=== PATIENT | male | born 1950 | race Caucasian/White ===

== ENCOUNTER → 2020-09-12 08:23 | Outpatient (BNVA) | payer MEDICARE, BC, SELFPAY | PROVIDERS: PCP Family Medicine; Visit Provider Family Medicine | DX: E78.5 Hyperlipidemia, unspecified (principal); R35.1 Nocturia; M25.59 Pain in other specified joint | CPT/HCPCS: 80053; 80061; 84153; 85025 ==

== ENCOUNTER 2020-11-20 14:04 | Outpatient (CLI) | payer MEDICARE, BC, SELFPAY ==
--- NOTE | 2020-11-20 14:09 | XR_ITS ---
WS: [id number] KNEE LEFT TECHNIQUE: 3 views of the left knee CLINICAL INFORMATION: medial left knee pain COMPARISON: None. FINDINGS: Moderate degenerative arthritis with narrowing worse medial joint compartment. Small suprapatellar ef fusion. Soft tissue edema. Moderate narrowing of the patellofemoral articulation. Hypertrophic patell a. XR/XR knee LT 3V* [id number] IMPRESSION: Moderate tricompartmental arthritis worse medial joint compartment and patellof emoral articulation. Kellgren-William Classification: grade 3 (moderate): moderate multiple osteoph ytes, definite narrowing of joint space and some sclerosis and possible deformi ty of bone ends
== END 2020-11-20 14:05 | disposition home or self-care (01) ==
PROVIDERS: PCP Family Medicine; Visit Provider Family Medicine
DX: M25.762 Osteophyte, left knee (principal)
CPT/HCPCS: 73562

== ENCOUNTER → 2021-04-29 08:25 | Outpatient (BNVA) | payer MEDICARE, BC, SELFPAY | PROVIDERS: PCP Family Medicine; Visit Provider Family Medicine | DX: K21.9 Gastro-esophageal reflux disease without esophagitis (principal); I10 Essential (primary) hypertension; R53.83 Other fatigue | CPT/HCPCS: 84403; 84443 ==

== ENCOUNTER → 2021-07-31 08:34 | Outpatient (BNVA) | payer MEDICARE, BC, SELFPAY | PROVIDERS: PCP Family Medicine; Visit Provider Family Medicine | DX: R79.89 Other specified abnormal findings of blood chemistry (principal); M54.2 Cervicalgia; G89.29 Other chronic pain | CPT/HCPCS: 84403; 85025 ==

== ENCOUNTER 2021-08-01 09:53 | Outpatient (CLI) | payer MEDICARE, BC, SELFPAY ==
--- NOTE | 2021-08-01 10:03 | XR_ITS ---
WS: [id number] Exam: XR sacroiliac jts m 3V [id number] Date/Time of Exam: 08/01/2021 10:03 AM Reason For Exam: left si joint pain The left SI joint is partially fused. The right SI joint is open. Moderate degenerative change of bot h SI joints. Bony changes in the pelvis to suggest diffuse idiopathic skeletal hyperostosis. No fract ure. No bone destruction identified. Pseudoarthrosis involving the left transverse process of L5 and the left sacrum. XR/XR sacroiliac jts m 3V [id number] IMPRESSION: 1. Partially fused left SI joint. 2. Bilateral SI joint DJD. Probable idiopathic skeletal hyperostosis. 3. Partially visualized left total hip replacement.
--- NOTE | 2021-08-01 10:03 | XR_ITS ---
WS: [id number] Exam: XR cervical spine 3V* [id number] Date/Time of Exam: 08/01/2021 10:03 AM Reason For Exam: chronic right neck pain No fracture or dislocation. Mild degenerative disc changes from C5 to C7 with spondylosis. Facet DJD at all levels. Normal paraspinal soft tissue structures. The odontoid is intact. XR/XR cervical spine 3V* [id number] IMPRESSION: 1. Degenerative changes. 2. No fracture or malalignment.
== END 2021-08-01 09:54 | disposition home or self-care (01) ==
LOC: RAD 09:56
PROVIDERS: PCP Family Medicine; Visit Provider Family Medicine
DX: G89.29 Other chronic pain (principal); M54.2 Cervicalgia; M53.3 Sacrococcygeal disorders, not elsewhere classified
CPT/HCPCS: 72040; 72202

== ENCOUNTER 2021-08-18 06:00 | Outpatient (RCR) | payer MEDICARE, BC, SELFPAY | END 2021-08-21 23:59 | disposition home or self-care (01) | LOC: SPT 06:00 | PROVIDERS: PCP Family Medicine; Referring Provider Family Medicine; Visit Provider Family Medicine | DX: M54.2 Cervicalgia (principal); G89.29 Other chronic pain | CPT/HCPCS: 97110; 97162 ==

== ENCOUNTER 2021-08-22 06:00 | Outpatient (RCR) | payer MEDICARE, BC, SELFPAY | END 2021-09-21 23:59 | disposition home or self-care (01) | LOC: SPT 06:00 | PROVIDERS: PCP Family Medicine; Referring Provider Family Medicine; Visit Provider Family Medicine | DX: M54.2 Cervicalgia (principal); G89.29 Other chronic pain | CPT/HCPCS: 97110 ==

== ENCOUNTER → 2021-09-11 09:18 | Outpatient (BNVA) | payer MEDICARE, BC, SELFPAY | PROVIDERS: PCP Family Medicine; Visit Provider Family Medicine | DX: E78.5 Hyperlipidemia, unspecified (principal); R35.1 Nocturia; N52.9 Male erectile dysfunction, unspecified; I10 Essential (primary) hypertension; N52.1 Erectile dysfunction due to diseases classified elsewhere | CPT/HCPCS: 80053; 80061; 84153 ==

== ENCOUNTER → 2021-12-08 14:43 | Outpatient (BNVA) | payer MEDICARE, BC, SELFPAY | PROVIDERS: PCP Family Medicine; Visit Provider Nurse Practitioner Family | DX: M25.562 Pain in left knee (principal); I10 Essential (primary) hypertension | CPT/HCPCS: 20610; 99213; J0702; J3490 ==

== ENCOUNTER → 2021-12-15 14:01 | Outpatient (BNVA) | payer MEDICARE, BC, SELFPAY | PROVIDERS: PCP Family Medicine; Visit Provider Nurse Practitioner Family | DX: M25.562 Pain in left knee (principal); M53.3 Sacrococcygeal disorders, not elsewhere classified; G89.29 Other chronic pain; Z96.642 Presence of left artificial hip joint | CPT/HCPCS: 73502; 99214 ==

== ENCOUNTER 2021-12-25 13:02 | Emergency (ER) | payer MEDICARE, BC, SELFPAY ==
[2021-12-25 13:10] VITALS: BP 132/90; PULSE 82; RESP 24; TEMP 37; O2SAT 94
--- NOTE | 2021-12-25 13:11 | ED_ITS ---
HPI - Back Pain/Injury General: Chief Complaint: Back Pain/Injury Stated Complaint: back pain Time Seen by Provider: 12/25/21 13:11 History of Present Illness: Mr. Orozco is a 71-year-old gentleman with remote history of traumatic back injury presenting to the emergency department d ue to severe back pain. Onset of symptoms was approximately 3 days ago without known specific provoking factor. Endorses worsening pain and spasming. Has progressed to the point of being unable to get out of bed. Typically back pain is well controlled and does not require daily medication. Density symptoms is severe. Worse with movement. No other specific changes in health, exacerbating, or alleviating factors identified. Onset (ago): day(s) Timing: constant Severity: severe Location: lumbar spine Exacerbating factors: movement and walking Context: unknown Review of Systems General: Reports: 10 or more systems reviewed and unremarkable except in HPI and below PFSH ED PFSH: Medical History Carpal tunnel syndrome of right wrist Dyslipidemia Surgical History History of hip replacement Left History of shoulder replacement Right Family History Mother Cancer Father Diabetes Dementia Stroke Brother Diabetes Social History Smoking and tobacco status: never smoked Second hand smoke exposure: No Alcohol intake: current Alcohol intake frequency: holidays/special occasions only Desire information about alcohol rehabilitation?: No Desire information about substance/drug rehabilitation?: No Physical Exam Const: COMMON NORMALS: alert GENERAL APPEARANCE: cooperative, well developed and in distress (Due to pain) HENMT: COMMON NORMALS: normocephalic and atraumatic HEAD & SCALP: normocephalic and atraumatic Eye: COMMON NORMALS: conjunctivae normal CONJUNCTIVA: Yes conjunctivae nor mal SCLERA: sclerae normal Neck/C-Spine: COMMON NORMALS: supple GENERAL: Yes trachea midline Resp: COMMON NORMALS: clear to auscultation bilaterally EFFORT & INSPECTION: Yes able to speak in complete sentences AUSCULTATION: clear to auscultation bilaterally Cardio: COMMON NORMALS: regular rhythm RATE: tachycardic RHYTHM: regular rhythm GI: COMMON NORMALS: Soft to palpation PALPATION: Yes Soft to palpation and No Tenderness to palpation present (GI) PERCUSSION: normal to percussion Extremity: GENERAL: Yes normal exam except as noted and No edema Neuro: COMMON NORMALS: moves all extremities SENSORIUM/ORIENTATION: Yes alert and No Orientation impaired Psych: COMMON NORMALS: mental status grossly normal and Normal thought process present THOUGHT PROCESS: Normal thought process present Course Vital Signs: Vital signs: Vital Signs Temperature 98.6 F 12/25/21 15:35 Pulse Rate 79 12/25/21 16:52 Respiratory Rate 18 12/25/21 16:52 Blood Pressure 118/68 12/25/21 16:52 Pulse Oximetry 97 12/25/21 16:52 Oxygen Delivery Me thod 12/25/21 15:35 MDM - Back Pain/Injury Medical Decision Making 71-year-old gentleman presenting with atraumatic back pain. Does have a history of back injury though typically well controlled. No red flag symptoms reported. Patient is nontoxic though visibly uncomfortable due to pain. Symptom treatment ordered. No leukocytosis on laboratory studies, hemoconcentration again noted. No significant metabolic abnormalities. No evidence of UTI. CT imaging with no acute intra-abdominal pathology to explain symptoms. Degenerative changes discussed with patient and incidental findings were discussed. Upon reassessment patient feels significantly improved. Most likely etiology of patient symptoms is exacerbation of degenerative disc disease/back pain. Plan to have outpatient follow-up with spine surgery. The results of ED evaluation were discussed with the patient including prescriptions and/or symptomatic cares (if applicable) including appropriate and responsible use, followup plan, and return precautions. The patient verbalized understanding and felt safe for discharge. Medical Records I reviewed the patient's medical records. Labs I reviewed the patient's lab results. : 12/25/21 13:50 12/25/21 13:50 Radiology Impressions Abdomen/Pelvis CT 12/25/21 13:48 IMPRESSION: 1. Left hip arthroplasty, with anatomic alignment and no acute complication. 2. Findings in the lumbar spine described in separate report. 3. Old healed pubic ramus fractures. 4. Postsurgical changes at the level of the left hemidiaphragm. 5. Hepatic steatosis. 6. Diverticulosis coli. 7. Prostatomegaly. COMMENTS: Consistent with the [employer]'s Incidental Findings Committee white paper (J Am Beto Radiol 2018): Any incidental renal lesion less than 1 cm or classified as too small to characterize, or any incidental cystic renal lesion characterized as simple-appearing, is likely benign. No follow-up imaging is recommended for these lesions per consensus recommendations based on imaging criteria. Lumbar Spine CT 12/25/21 13:48 IMPRESSION: 1. No acute lumbar spinal injury demonstrated by CT. 2. Degenerative changes of the cervical spine, as above. Laboratory Results WBC 8.0 10^3/uL (4.0-10.0) 12/25/21 13:50 RBC 6.20 10^6/uL (4.1-5.3) H 12/25/21 13:50 Hgb 18.3 g/dL (11.7-16.6) H 12/25/21 13:50 Hct 55.0 % (42.0-52.0) H 12/25/21 13:50 MCV 88.7 fl (80-94) 12/25/21 13:50 MCH 29.5 pg (28.0-34.0) 12/25/21 13:50 MCHC 33.3 g/dL (30.0-36.0) 12/25/21 13:50 RDW 14.4 % (12.1-15.1) 12/25/21 13:50 Plt Count 192 10^3/cmm (130-400) 12/25/21 13:50 MPV 9.9 fL (7.4-10.4) 12/25/21 13:50 Neut % (Auto) 61.3 % 12/25/21 13:50 Lymph % (Auto) 24.9 % 12/25/21 13:50 [place] % (Auto) 9.3 % 12/25/21 13:50 Eos % (Auto) 3.1 % 12/25/21 13:50 Baso % (Auto) 0.8 % 12/25/21 13:50 Neut # (Auto) 4.90 10^3/uL (1.8-7.7) 12/25/21 13:50 Lymph # (Auto) 2.0 10^3/uL (0.8-4.8) 12/25/21 13:50 [place] # (Auto) 0.7 10^3/uL (0.2-0.9) 12/25/21 13:50 Eos # (Auto) 0.3 10^3/uL (0.0-0.8) 12/25/21 13:50 Baso # (Auto) 0.1 10^3/uL (0.0-0.1) 12/25/21 13:50 Nucleated RBC % (auto) 0 % 12/25/21 13:50 Nucleated RBCs # 0.0 /100WBC 12/25/21 13:50 Sodium 142 mmol/L (136-145) 12/25/21 13:50 Potassium 4.0 mmol/L (3.5-5.1) 12/25/21 13:50 Chloride 106 mmol/L (98-107) 12/25/21 13:50 Carbon Dioxide 24 mmol/L (22-29) 12/25/21 13:50 Anion Gap 16.0 (5-19) 12/25/21 13:50 BUN 19 mg/dL (8-23) 12/25/21 13:50 Creatinine 1.0 mg/dL (0.7-1.2) 12/25/21 13:50 GFR Calculation Not Reportable 12/25/21 13:50 Glucose 82 mg/dL (65-115) 12/25/21 13:50 Calculated Osmolality 295 mOsm/kg (285-295) 12/25/21 13:50 Calcium 8.7 mg/dL (8.5-10.5) 12/25/21 13:50 Total Bilirubin 0.5 mg/dL (0.15-1.2) 12/25/21 13:50 AST 28 U/L (0-40) 12/25/21 13:50 ALT 30 U/L (0-41) 12/25/21 13:50 Alkaline Phosphatase 87 U/L (40-130) 12/25/21 13:50 Total Protein 6.3 g/dL (6.6-8.7) L 12/25/21 13:50 Albumin 3.8 g/dL (3.5-5.2) 12/25/21 13:50 Globulin 2.5 g/dL (1.3-4.6) 12/25/21 13:50 Lipase 50 U/L (13-60) 12/25/21 13:50 Urine Color Yellow (Yellow) 12/25/21 15:30 Urine Appearance Clear (CLEAR) 12/25/21 15:30 Urine pH 5 (5-7) 12/25/21 15:30 Ur Specific [place] 1.030 (1.005-1.030) 12/25/21 15:30 Urine Protein Neg (Negative) 12/25/21 15:30 Urine Glucose (UA) Norm (Normal) 12/25/21 15:30 Urine Ketones Negative (Negative) 12/25/21 15:30 Urine Blood Neg (Negative) 12/25/21 15:30 Urine Nitrate Negative (Negative) 12/25/21 15:30 Urine Bilirubin 1+ (Negative) H 12/25/21 15:30 Urine Urobilinogen Norm mg/dL (Negative) 12/25/21 15:30 Ur Leukocyte Esterase Negative (Negative) 12/25/21 15:30 Discharge Plan Discharge Patient Disposition: Home Clinical Impression: Back pain Condition: Stable Prescriptions: New oxycodone 5 mg tablet 5 mg PO Q4H PRN (Reason: pain) Qty: 10 0RF Valium 2 mg tablet 2 mg PO TID PRN (Reason: muscle spasm) Qty: 20 0RF No Action meloxicam 15 mg tablet 15 mg PO DAILY Qty: 90 3RF sildenafil (pulm.hypertension) 20 mg tablet See Rx Instructions PO DAILY Qty: 30 2RF Rx Instructions: PO daily; Take 1-5 pills one hour before sexual activity. Take on an empty stomach amlodipine [Norvasc] 2.5 mg tablet 2.5 mg PO DAILY Qty: 90 1RF omeprazole 20 mg capsule,delayed release(DR/EC) 20 mg PO DAILY Qty: 90 1RF tizanidine 4 mg tablet 4 mg PO Q8H PRN (Reason: muscle spasticity) Qty: 90 0RF (DME) crutches See Rx Instructions .Route .MEDSUPPLY Qty: 1 0RF Rx Instructions: As directed atorvastatin 40 mg tablet 40 mg PO DAILY 90 Days Qty: 90 1RF testosterone cypionate 200 mg/mL oil 200 mg SUBCUT .every 14 days Qty: 1 2RF Rx Instructions: Please dispense syringes as well. Discharge Orders: Discharge ED (Routine); Ordered 12/25/21 Ordered By: Sachin Godfrey Referrals: Karen Simmons DO [Primary Care Provider] - Discharge Diet: Usual diet Discharge Activity: Increase activity as tolerated Patient Instructions: Diazepam (By mouth), Back Pain (ED), Opioid Safety, Pain Management Activity Restrictions/Additional Instructions: Thank you for visiting the emergency department. You were seen evaluated for back pain. The exact cause of your back pain is unclear though we are pleased that you had improvement in the emergency department. As discussed I will prescribe oxycodone and also Valium for pain. Please use these extremely cautiously and do not take them at the same time. You may also use [id number] medications however please do not exceed the daily recommended dosage and please keep in mind that many namebrand medications contain the same active gradients. Please follow-up with your primary care provider and pain management. Return to the emergency department for uncontrolled symptoms or anything else that you are concerned about a feel needs emergency department evaluation. Coding Level of Care Code ED Business Continuity Analyst for [facility] Exam Comprehensive
[2021-12-25 13:30] VITALS: RESP 22
[2021-12-25] MEDS: HYDROmorphone 1 mg/mL INJ 1 mL 0.5 MG IVP ×2 (13:30→14:09)
[2021-12-25] MEDS: diazePAM 2 mg Tablet PO (13:31)
--- NOTE | 2021-12-25 13:48 | CTR_ITS ---
PROCEDURE INFORMATION: Exam: CT Abdomen And Pelvis With Contrast Exam date and time: 12/25/2021 3:15 PM Age: 71 years old Clinical indication: Abdominal pain; Prior surgery; Surgery type: Diaphrahm repair, hip, femur, splenectomy; Additional info: Back and hip pain TECHNIQUE: Imaging protocol: Computed tomography of the abdomen and pelvis with contrast. Radiation optimization: All CT scans at this facility use at least one of these dose optimization techniques: automated exposure control; mA and/or kV adjustment per patient size (includes targeted exams where dose is matched to clinical indication); or iterative reconstruction. Contrast material: OMNI 350; Contrast volume: 100 ml; Contrast route: INTRAVENOUS (IV); COMPARISON: CR XR hip LT 2-3V wo/w pel* [id number] 12/15/2021 2:08 PM RADIATION DOSE METRICS: Total DLP (mGy-cm): 922.4 FINDINGS: Liver: There is a diffuse decrease in hepatic parenchymal density, consistent with fatty infiltration. There is a 10 mm hypodensity in the right hepatic lobe which is nonspecific but likely reflects parenchymal cyst or hemangioma. A smaller 3 mm hypodensity in the lateral aspect of the right hepatic lobe is nonspecific but too small to characterize. Gallbladder and bile ducts: The gallbladder is normal. Pancreas: The pancreas is normal. Spleen: The spleen is normal. Adrenal glands: The adrenal glands are normal. Kidneys and ureters: There is no evidence of hydronephrosis. Simple appearing small right renal cortical cysts measuring up to 6 mm. No nephrolithiasis. Stomach and bowel: The stomach is normal. Diverticulosis coli is noted, with no inflammatory changes to indicate diverticulitis. Appendix: A normal appendix is identified. Intraperitoneal space: There is no free intraperitoneal air visualized. There is no evidence of free intraperitoneal or pelvic fluid. No free air. No free fluid. Vasculature: Unremarkable. No abdominal aortic aneurysm. Lymph nodes: No abnormally enlarged lymph nodes identified. Urinary bladder: The bladder is normal. Reproductive: Prostatomegaly is noted. The prostate gland measures 6.3 cm in diameter. Bones/joints: The lumbar spine is described in separate report. Previous left hip arthroplasty, with anatomic alignment and no acute complication evident. The distal tip of the femoral component is not included in the field of view but is visualized on the 12/15/2021 plain radiographs. Heterotopic ossification is seen at the lateral aspect of the leonel bilaterally. Old healed pubic ramus fractures. Soft tissues: Unremarkable. Other findings: Postsurgical changes at the level of the left hemidiaphragm. CT/CT abdomen pelvis w con* [id number] IMPRESSION: 1. Left hip arthroplasty, with anatomic alignment and no acute complication. 2. Findings in the lumbar spine described in separate report. 3. Old healed pubic ramus fractures. 4. Postsurgical changes at the level of the left hemidiaphragm. 5. Hepatic steatosis. 6. Diverticulosis coli. 7. Prostatomegaly. COMMENTS: Consistent with the [employer]'s Incidental Findings Committee white paper (J Am Beto Radiol 2018): Any incidental renal lesion less than 1 cm or classified as too small to characterize, or any incidental cystic renal lesion characterized as simple-appearing, is likely benign. No follow-up imaging is recommended for these lesions per consensus recommendations based on imaging criteria.
--- NOTE | 2021-12-25 13:48 | CTR_ITS ---
PROCEDURE INFORMATION: Exam: CT Lumbar Spine Without Contrast Exam date and time: 12/25/2021 3:15 PM Age: 71 years old Clinical indication: Low back pain; Prior surgery; Surgery type: Hip; Additional info: Severe back pain TECHNIQUE: Imaging protocol: Computed tomography of the lumbar spine without contrast. Radiation optimization: All CT scans at this facility use at least one of these dose optimization techniques: automated exposure control; mA and/or kV adjustment per patient size (includes targeted exams where dose is matched to clinical indication); or iterative reconstruction. COMPARISON: CR XR hip LT 2-3V wo/w pel* [id number] 12/15/2021 2:08 PM RADIATION DOSE METRICS: Total DLP (mGy-cm): 751.5 FINDINGS: Bones/joints: There is slight right convexity of the upper lumbar spine. No anterior wedging deformity. No acute lucent fracture lines visualized. No pars interarticularis defect is seen. Lumbar facet arthropathy is noted. There is a degenerative left lateral pseudoarthrosis at the L5-S1 level. Spondylitic changes are most prominent at the L2-L3 and L4-L5 levels. Central canal stenosis is moderate at L2-L3, eccentric to the left and at L4-L5. Neural foraminal stenosis is seen on the left at L2-L3, eccentric to the left at L3-L4 and L4-L5. Soft tissues: Unremarkable. CT/CT lumbar spine wo con* [id number] IMPRESSION: 1. No acute lumbar spinal injury demonstrated by CT. 2. Degenerative changes of the cervical spine, as above.
[2021-12-25 13:57] LABS: Basophils # 0.1 10^3/uL (0.0-0.1); Basophils % 0.8 %; Eosinophils # 0.3 10^3/uL (0.0-0.8); Eosinophils % 3.1 %; Hemoglobin 18.3 g/dL (11.7-16.6); Lymphocytes % 24.9 %; Mean Corpuscular HGB Conc 33.3 g/dL (30.0-36.0); Mean Corpuscular Hemoglobin 29.5 pg (28.0-34.0); Mean Corpuscular Volume 88.7 fl (80-94); Mean Platelet Volume 9.9 fL (7.4-10.4); Monocytes # 0.7 10^3/uL (0.2-0.9); Monocytes % 9.3 %; Neutrophils % 61.3 %; Nucleated Red Blood Cells % 0 %; Platelet Count 192 10^3/cmm (130-400); Red Cell Distribution Width 14.4 % (12.1-15.1)
[2021-12-25 14:09] VITALS: RESP 17
[2021-12-25] MEDS: sodium chloride 0.9% 1,000 ML 999 ML IV (14:11)
[2021-12-25 14:24] LABS: Alanine Aminotransferase 30 U/L (0-41); Albumin Level 3.8 g/dL (3.5-5.2); Alkaline Phosphatase 87 U/L (40-130); Aspartate Amino Transferase 28 U/L (0-40); Blood Urea Nitrogen 19 mg/dL (8-23); Calcium 8.7 mg/dL (8.5-10.5); Carbon Dioxide 24 mmol/L (22-29); Chloride 106 mmol/L (98-107); Globulin 2.5 g/dL (1.3-4.6); Glucose 82 mg/dL (65-115); Lipase 50 U/L (13-60); Osmolality Calculated 295 mOsm/kg (285-295); Sodium 142 mmol/L (136-145); Total Bilirubin 0.5 mg/dL (0.15-1.2); Total Protein 6.3 g/dL (6.6-8.7)
[2021-12-25] MEDS: iohexol 350 mg/mL 500 mL Btl (per mL) IV (15:20)
[2021-12-25 15:35] VITALS: BP 132/90; PULSE 78; RESP 17; TEMP 37; O2SAT 94
[2021-12-25 15:44] LABS: Add Urine Microscopic? NO; Charge for UA Resulting for Rev
[2021-12-25 16:08] LABS: Urine Appearance Clear (CLEAR); Urine Color Yellow (Yellow); pH Urine 5 (5-7)
[2021-12-25 16:09] LABS: Bilirubin Urine 1+ (Negative); Blood Urine Neg (Negative); Glucose Urine UA Norm (Normal); Ketones Urine Negative (Negative); Leukocyte Esterase Urine Negative (Negative); Nitrate Urine Negative (Negative); Protein Urine Neg (Negative); Urobilinogen Urine Norm (Negative)
[2021-12-25 16:52] VITALS: BP 118/68; PULSE 79; RESP 18; O2SAT 97
--- NOTE | 2021-12-26 08:44 | DCPLANNER ---
Addendum entered by Jaimie Campbell 02/11/22 15:22: Patient had a follow up appointment scheduled with ortho - patient did attend appointment Addendum entered by Jaimie Campbell 01/01/22 17:12: Patient has a follow up appointment scheduled for Thursday, January 20, 2022 at 9:[address] Munguia at ortho. Clinic will call patient with appointment information. Original Note: broiler manager had message to schedule a follow up appointment for patient with ortho. broiler manager sent patients information to the front office staff at ortho. Patients information will be printed and reviewed. Clinic will call patient with appointment information.
== END 2021-12-25 16:54 | disposition home or self-care (01) ==
PROVIDERS: Emergency Provider Emergency Medicine; PCP Family Medicine
DX: M54.9 Dorsalgia, unspecified (principal); E78.5 Hyperlipidemia, unspecified
CPT/HCPCS: 72131; 74177; 80053; 81003; 83690; 85025; 96361; 96374; 96376; 99285; J1170; J7030; Q9967

== ENCOUNTER → 2022-01-20 09:03 | Outpatient (BNVA) | payer MEDICARE, BC, SELFPAY | PROVIDERS: PCP Family Medicine; Referring Provider Emergency Medicine; Visit Provider Orthopaedic Surgery | DX: M48.062 Spinal stenosis, lumbar region with neurogenic claudication (principal); M47.816 Spondylosis without myelopathy or radiculopathy, lumbar region | CPT/HCPCS: 72110; 99204 ==

== ENCOUNTER 2022-02-11 08:16 | Outpatient (CLI) | payer MEDICARE, BC, SELFPAY ==
--- NOTE | 2022-02-11 08:45 | MR_ITS ---
WS: [id number] MRI LUMBAR SPINE NONCONTRAST TECHNIQUE: Sagittal T1, T2 and STIR imaging. Axial T1 and T2 imaging. CLINICAL INFORMATION: low back back COMPARISON: CT December 25, 2021 FINDINGS: Mild lumbar curve. No acute compression. No high-grade central canal stenosis. Disc desiccation worse at L2-L3 and L4-L5. L1-L2: Mild facet arthropathy. Spinal canal and foramen are patent. L2-L3: Disc bulging eccentric to the LEFT. Mild central canal stenosis. Impingement traversing LEFT L 3 nerve root. Mild facet arthropathy. LEFT foraminal protrusion with mild LEFT foraminal narrowing. L3-L4: Mild annular bulging with slight effacement of the ventral thecal sac. Narrowing of the LEFT g reater than RIGHT subarticular recess. LEFT eccentric disc bulge with mild LEFT foraminal narrowing. RIGHT foramen is patent. Mild facet arthropathy. L4-L5: Mild annular bulging with impingement traversing L5 nerve roots bilaterally. Mild facet arthro petra. Moderate RIGHT and mild LEFT foraminal narrowing. Mild central canal stenosis. L5-S1: Mild annular bulging. Osteophytic ridging. Spinal canal and foramen are patent. Mild facet art hropathy. Disc protrusion in the lower thoracic spine seen on the system dispatcher imaging with indentation on the thoraci c cord and mild to moderate central canal stenosis. T7-T8. Visualized pelvic bony structures: Normal. Paravertebral soft tissues: Normal. MR/MR lumbar spine wo con* [id number] IMPRESSION: 1. Mild lumbar curve. No acute compression. 2. Mild central canal stenosis L2-L3 with impingement on the LEFT subarticular recess and traversing LEFT L3 nerve root. Mild LEFT L2-L3 foraminal narrowing. 3. Mild annular bulging L3-L4 with impingement on the bilateral subarticular r ecess LEFT greater than RIGHT. Mild central canal stenosis. Mild LEFT foraminal narrowing at this level with a tiny LEFT foraminal protrusion. 4. Mild central canal stenosis L4-L5 with impingement traversing L5 nerve root s bilaterally. RIGHT foraminal protrusion with moderate RIGHT foraminal narrowi ng impinges the exiting RIGHT L4 nerve root. 5. Thoracic spine disc protrusion T7-T8 with mild to moderate central canal st enosis and indentation on the thoracic cord. This can be further evaluated with thoracic spine MRI.
== END 2022-02-11 08:17 | disposition home or self-care (01) ==
LOC: RAD 08:17
PROVIDERS: PCP Family Medicine; Visit Provider Orthopaedic Surgery
DX: M53.3 Sacrococcygeal disorders, not elsewhere classified (principal); G89.29 Other chronic pain; M54.9 Dorsalgia, unspecified
CPT/HCPCS: 72148

== ENCOUNTER → 2022-02-17 08:20 | Outpatient (BNVA) | payer MEDICARE, BC, SELFPAY | PROVIDERS: PCP Family Medicine; Visit Provider Orthopaedic Surgery | DX: M48.062 Spinal stenosis, lumbar region with neurogenic claudication (principal); M51.26 Other intervertebral disc displacement, lumbar region | CPT/HCPCS: 99214 ==

== ENCOUNTER → 2022-04-06 09:33 | Outpatient (BNVA) | payer MEDICARE, BC, SELFPAY | PROVIDERS: PCP Family Medicine; Visit Provider Family Medicine | DX: R79.89 Other specified abnormal findings of blood chemistry (principal) | CPT/HCPCS: 84403; 85025 ==

== ENCOUNTER → 2022-04-07 08:10 | Outpatient (BNVA) | payer MEDICARE, BC, SELFPAY | PROVIDERS: PCP Family Medicine; Referring Provider Family Medicine; Visit Provider Orthopaedic Surgery | DX: M72.0 Palmar fascial fibromatosis [Dupuytren] (principal) | CPT/HCPCS: 99203 ==

== ENCOUNTER → 2022-04-21 11:45 | Outpatient (BNVA) | payer MEDICARE, BC, SELFPAY | PROVIDERS: PCP Family Medicine; Visit Provider Family Medicine | DX: L81.9 Disorder of pigmentation, unspecified (principal) | CPT/HCPCS: 88304 ==

== ENCOUNTER 2022-05-13 14:14 | Outpatient (CLI) | payer MEDICARE, BC, SELFPAY ==
--- NOTE | 2022-05-13 14:30 | MR_ITS ---
WS: [id number] MRI THORACIC SPINE WITHOUT CONTRAST TECHNIQUE: Sagittal T1, T2 and STIR imaging. Axial T2 imaging. Noncontrast imaging obtained. CLINICAL INFORMATION: R93.7 - Abnormal findings on diagnostic imaging of other ... COMPARISON: Lumbar spine MRI February 11, 2022 FINDINGS: Mild thoracic curve. No acute compression. Prominent RIGHT pericentral protrusion mid thoracic spine at T7/T8 RIGHT pericentral protrusion at this level results in indentation RIGHT ventral thoracic cord with mi ld central canal stenosis. Cord signal remains normal. Small shallow central protrusions at T4-T5 T5-T6, T6-T7 without significant central canal stenosis at these levels. Moderate facet arthropathy lower thoracic spine. No acute compression fractures. Minim al chronic anterior wedging in the mid thoracic spine. Adrenal glands are normal. Normal caliber thor acic aorta. Normal paravertebral soft tissues. MR/MR thoracic spin wo con* [id number] IMPRESSION: 1. Prominent RIGHT pericentral protrusion T7-T8 with indentation RIGHT ventral thoracic cord with mild central canal stenosis. Cord signal remains normal. 2. Moderate facet arthropathy in the lower thoracic spine. 3. No acute compression fractures. 4. Additional tiny protrusions in the upper thoracic spine described above wit hout significant central canal stenosis.
== END 2022-05-13 14:15 | disposition home or self-care (01) ==
LOC: RAD 14:19
PROVIDERS: PCP Family Medicine; Visit Provider Orthopaedic Surgery
DX: R93.7 Abnormal findings on diagnostic imaging of other parts of musculoskeletal system (principal); M51.24 Other intervertebral disc displacement, thoracic region; M47.814 Spondylosis without myelopathy or radiculopathy, thoracic region
CPT/HCPCS: 72146

== ENCOUNTER → 2022-05-19 14:28 | Outpatient (BNVA) | payer MEDICARE, BC, SELFPAY | PROVIDERS: PCP Family Medicine; Visit Provider Orthopaedic Surgery | DX: M48.062 Spinal stenosis, lumbar region with neurogenic claudication (principal); M51.24 Other intervertebral disc displacement, thoracic region | CPT/HCPCS: 99214 ==

== ENCOUNTER 2022-08-06 20:00 | Outpatient (CLI) | payer OTHER, SELFPAY | END 2022-08-06 20:01 | disposition home or self-care (01) | LOC: SLEEP 08-07 06:19 | PROVIDERS: PCP Family Medicine; Visit Provider Family Medicine | DX: G47.33 Obstructive sleep apnea (adult) (pediatric) (principal) | CPT/HCPCS: 95811 ==

== ENCOUNTER → 2022-09-16 09:44 | Outpatient (BNVA) | payer MEDICARE, BC, SELFPAY | PROVIDERS: PCP Family Medicine; Visit Provider Family Medicine | DX: R79.89 Other specified abnormal findings of blood chemistry (principal) | CPT/HCPCS: 84403 ==

== ENCOUNTER 2022-10-14 09:38 | Outpatient (CLI) | payer MEDICARE, BC, SELFPAY ==
--- NOTE | 2022-10-14 09:52 | XR_ITS ---
WS: [id number] EXAMINATION: XR hand RT min 3V* [id number] REASON FOR EXAM: index finger pain and swelling COMPARISON: None available. ORDER DATE: 10/14/2022 9:57 AM FINDINGS: There is generalized intra phalangeal joint space narrowing. This indicates degenerative joint and-or chondral changes. Juxta articular marginal osteophytes are present. There are no acute fractures or dislocations. IMPRESSION: DIFFUSE OSTEOARTHRITIS.
== END 2022-10-14 09:39 | disposition home or self-care (01) ==
PROVIDERS: PCP Family Medicine; Visit Provider Family Medicine
DX: M79.89 Other specified soft tissue disorders (principal); M19.041 Primary osteoarthritis, right hand
CPT/HCPCS: 73130

== ENCOUNTER 2022-10-27 20:57 | Emergency (ER) | payer MEDICARE, BC, SELFPAY ==
[2022-10-27 21:00] VITALS: BP 142/99; PULSE 77; RESP 18; TEMP 36.7; O2SAT 94; BMI 27.3
--- NOTE | 2022-10-27 21:02 | ED_ITS ---
HPI - Back Pain/Injury General: Chief Complaint: Back Pain/Injury Stated Complaint: low back pain Time Seen by Provider: 10/27/22 20:58 History of Present Illness: Patient presents to the ER by EMS with low back pain after fall off a rolling chair and landing on the concrete. EMS gave the patient a total of 200 mg of fentanyl and 4 of Zofran patient is writhing in pain spastic nature to his low back. Patient denies any pain anywhere else other than his low back. Patient has no known allergies. Review of Systems General: Reports: 10 or more systems reviewed and unremarkable except in HPI and below PFSH ED PFSH: Medical History Carpal tunnel syndrome of right wrist Dyslipidemia Surgical History History of hip replacement Left History of shoulder replacement Right Family History Mother Cancer Father Diabetes Dementia Stroke Brother Diabetes Social History Smoking and tobacco status: never smoked Second hand smoke exposure: No Alcohol intake: current Alcohol intake frequency: holidays/special occasions only Desire information about alcohol rehabilitation?: No Substance/Drug Use: never Desire information about substance/drug rehabilitation?: No Physical Exam Const: COMMON NORMALS: average body habitus, patient oriented x3, no limitations, healthy appearing, alert and well nourished; apparent distress (Writhing in pain) HENMT: COMMON NORMALS: normocephalic, atraumatic, hearing grossly normal bilaterally, external ears normal, Normal external nose present and moist oral mucous membranes HEAD & SCALP: normocephalic and atraumatic NOSE: Normal external nose present EXTERNAL EAR: Yes external ears normal Eye: COMMON NORMALS: Equal, round and reactive pupils present, EOMs intact bilaterally, conjunctivae normal and no scleral icterus CONJUNCTIVA: Yes conjunctivae normal PUPIL: Yes Equal, round and reactive pupils present Neck/C-Spine: COMMON NORMALS: full ROM, no lymphadenopathy, supple, no meningeal signs, no JVD and Thyroid normal THYROID: Thyroid normal Lymph: LYMPHATIC: no lymphadenopathy noted Chest: COMMONS NORMALS: normal inspection of the chest and normal palpation of entire chest wall Resp: COMMON NORMALS: normal respiratory effort, No retractions, No use of accessory muscles and clear to auscultation bilaterally AUSCULTATION: clear to auscultation bilaterally Cardio: COMMON NORMALS: no JVD, regular rate, regular rhythm, S1 normal heart sound present, S2 normal heart sound present, No gallops present (Cardio), No clicks present (Cardio) and No murmurs present (Cardio) RATE: regular rate RHYTHM: regular rhythm HEART SOUNDS: S1 normal heart sound present and S2 normal heart sound present GI: COMMON NORMALS: Normal to inspection, nondistended, normoactive bowel sounds present, Soft to palpation, non-tender, No hepatosplenomegaly present and no masses PALPATION: Yes Soft to palpation and Yes No hepatosplenomegaly pre sent Back/Pelvis: OTHER: Tenderness to palpate lumbar paraspinal musculature. No overt tenderness over lumbar spine. Neuro: COMMON NORMALS: patient oriented x3 SENSORIUM/ORIENTATION: Yes alert MENINGEAL SIGNS: Yes no meningeal signs Course Vital Signs: Vital signs: Vital Signs Temperature 98.1 F 10/27/22 21:00 Pulse Rate 77 10/27/22 21:00 Respiratory Rate 18 10/27/22 21:12 Blood Pressure 142/99 10/27/22 21:00 Pulse Oximetry 94 10/27/22 21:00 Oxygen Delivery Me thod Room Air 10/27/22 21:00 MDM - Back Pain/Injury Medical Decision Making Patient presents to the ER with acute low back pain secondary to a fall out of a chair. Patient was given medicine that included 200 mcg of fentanyl and 4 mg Zofran on route by EMS. Patient was given 1 mg of Dilaudid and 60 mg of Norflex. Pain is significantly better but patient is still having pain. X-rays were obtained which was negative for any acute changes. Patient be discharged on hydrocodone 5/325 and be referred back to his family practice physician within the next 7 days. Differential Diagnosis Unlikely lumbar radiculopathy, sciatica, strain of lumbar region, renal colic, pyelonephritis, thoracic back pain, AAA or discitis Labs I reviewed the patient's lab results. Radiology Impressions Lumbar Spine X-Ray 10/27/22 21:31 IMPRESSION: 1. Multilevel disc space narrowing and productive endplate changes throughout the spine. 2. Lumbar spine mild dextrocurvature. Discharge Plan Discharge Patient Disposition: Home Clinical Impression: Low back pain Qualifiers: Chronicity: acute Back pain laterality: bilateral Sciatica presence: without sciatica Qualified Code(s): M54.50 - Low back pain, unspecified Fall Qualifiers: Encounter type: initial encounter Qualified Code(s): W19.XXXA - Unspecified fall, initial encounter Condition: Stable Prescriptions: New hydrocodone-acetaminophen 5-325 mg tablet 1 tab PO Q6H PRN (Reason: pain) Qty: 10 0RF No Action tizanidine 4 mg tablet 4 mg PO Q8H PRN (Reason: muscle spasticity) Qty: 90 0RF sildenafil (pulm.hypertension) 20 mg tablet See Rx Instructions .ROUTE .COMPLEX Qty: 90 0RF Dose Instruction: TAKE ONE TO FIVE TABLETS BY MOUTH ON AN EMPTY STOAMCH ONE HOUR BEFORE SEXUAL ACTIVITY Rx Instructions: TAKE ONE TO FIVE TABLETS BY MOUTH ON AN EMPTY STOAMCH ONE HOUR BEFORE SEXUAL ACTIVITY omeprazole 20 mg capsule,delayed release(DR/EC) See Rx Instructions .ROUTE .COMPLEX Qty: 90 1RF Dose Instruction: Take 1 capsule by mouth once daily Rx Instructions: Take 1 capsule by mouth once daily meloxicam 15 mg tablet See Rx Instructions .ROUTE .COMPLEX Qty: 90 1RF Dose Instruction: Take 1 tablet by mouth once daily Rx Instructions: Take 1 tablet by mouth once daily (DME) crutches See Rx Instructions .Route .MEDSUPPLY Qty: 1 0RF Rx Instructions: As directed prednisone 20 mg tablet 20 mg PO DAILY Qty: 15 0RF Rx Instructions: 60mg X3 days 40mg X2 days 20mg X 2days povidone-iodine [Betadine Swabsticks] 10 % swab 1 applic topical ONCE PRN (Reason: disinfection) Qty: 1 0RF lidocaine-epinephrine [Xylocaine with Epinephrine] 2 %-1:100,000 solution 2 ml SUBCUT ONCE PRN (Reason: anesthesia) Qty: 1 0RF testosterone cypionate 200 mg/mL oil 150 mg SUBCUT .every 14 days Qty: 4.5 0RF Rx Instructions: Please dispense syringes as well. amlodipine 2.5 mg tablet See Rx Instructions .ROUTE .COMPLEX Qty: 90 0RF Dose Instruction: Take 1 tablet by mouth once daily Rx Instructions: Take 1 tablet by mouth once daily atorvastatin 40 mg tablet 40 mg PO DAILY 90 Days Qty: 90 1RF oxycodone 5 mg tablet 5 mg PO Q4H PRN (Reason: pain) Qty: 10 0RF Valium 2 mg tablet 2 mg PO TID PRN (Reason: muscle spasm) Qty: 20 0RF Discharge Orders: Discharge ED (Routine); Ordered 10/27/22 Ordered By: Frakn Dobson Referrals: Karen Simmons DO [Primary Care Provider] - 1 week Patient Instructions: Opioid Safety, Pain Management Activity Restrictions/Additional Instructions: Please take pain medicine as directed as needed for severe pain. Please follow- up with family practice physician within the next 7 days or sooner as needed. If pain is uncontrollable please return to the ER for further evaluation. Coding Level of Care Code ED Associate Dean [employer] for Eduardo Heath
[2022-10-27 21:12] VITALS: RESP 18
[2022-10-27] MEDS: orphenadrine 30 mg/mL Inj 2 mL 60 MG IVP (21:12)
[2022-10-27] MEDS: HYDROmorphone 1 mg/mL INJ 1 mL IVP (21:12)
--- NOTE | 2022-10-27 21:31 | XRR_ITS ---
PROCEDURE INFORMATION: Exam: XR Lumbosacral Spine Exam date and time: 10/27/2022 9:34 PM Age: 72 years old Clinical indication: Injury or trauma; Fall; Additional info: Fall low back pain TECHNIQUE: Imaging protocol: Radiologic exam of the lumbosacral spine. Views: 2 or 3 views. COMPARISON: MR lumbar spine wo con* [id number] 02/11/2022 8:45 AM FINDINGS: Bones/joints: Multilevel disc space narrowing and productive endplate changes throughout the spine. Lumbar spine mild dextrocurvature. Soft tissues: Unremarkable. XR/XR lumbar spine 2-3V* [id number] IMPRESSION: 1. Multilevel disc space narrowing and productive endplate changes throughout the spine. 2. Lumbar spine mild dextrocurvature.
[2022-10-27] MEDS: HYDROcodone-acetaminophen 5-325 mg Tablet 2 TAB PO (23:13)
--- NOTE | 2022-10-27 23:24 | PC.NURSE ---
PT REFUSED DC VITALS.
== END 2022-10-27 23:24 | disposition home or self-care (01) ==
PROVIDERS: Emergency Provider Emergency Medicine; PCP Family Medicine
DX: M54.50 Low back pain, unspecified (principal); E78.5 Hyperlipidemia, unspecified; W07.XXXA Fall from chair, initial encounter
CPT/HCPCS: 72100; 96374; 96375; 99284; J1170; J2360

== ENCOUNTER 2022-10-28 12:42 | Emergency (ER) | payer MEDICARE, BC, SELFPAY ==
[2022-10-28 12:49] VITALS: BP 147/93; PULSE 76; O2SAT 90
--- NOTE | 2022-10-28 12:52 | CT_ITS ---
WS: [id number] CT LUMBAR SPINE TECHNIQUE: Noncontrast CT of the lumbar spine with coronal and sagittal reformatted images. CLINICAL INFORMATION: pain COMPARISON: MRI 02/11/2022 DLP: 815.[address] scans at [facility] use at least one of these dose optimization techniques: automated e xposure control; mA and/or kV adjustment per patient size (includes targeted exams where dose is matc hed to clinical indication); or iterative reconstruction. FINDINGS: Mild lumbar curve. No acute compression. Disc narrowing worse at L2-3 and L4-5 with vacuum disc pheno [place]. Mild lumbar curve. L1-L2: Moderate facet arthropathy. Spinal canal and foramen are patent. L2-L3: Disc bulging with impingement LEFT subarticular recess. Mild central canal stenosis. Moderate facet arthropathy. Moderate LEFT foraminal narrowing unchanged from previous. L3-L4: Small central disc protrusion. Mild central canal stenosis. Narrowing of the subarticular rece ss bilaterally. Moderate LEFT and mild RIGHT foraminal narrowing. Mild facet arthropathy. L4-L5: Mild disc bulging with mild to moderate central canal stenosis. Impingement traversing L5 nerv e roots bilaterally. Moderate facet arthropathy. Moderate RIGHT foraminal narrowing unchanged from pr evious. L5-S1: Mild RIGHT bony foraminal narrowing. Spinal canal and foramen are patent. Moderate facet arthr opathy. L5 is partially sacralized. Visualized pelvic bony structures: Normal. Paravertebral soft tissues: Normal. IMPRESSION: 1. No acute compression fractures. 2. Spondylitic changes unchanged since the MRI of 02/11/2022. 3. Mild central canal stenosis L2-L3 and L3-L4 are stable. Mild to moderate central canal stenosis L 4-5 stable. 4. Foraminal narrowing described above is unchanged.
--- NOTE | 2022-10-28 12:54 | ED_ITS ---
HPI - General Adult General: Chief complaint: Altered Mental Status Stated complaint: Chest pain, ETOH Time Seen by Provider: 10/28/22 12:43 Source: patient Mode of arrival: EMS History of Present Illness: 72-year-old male presents emergency room via EMS. He was in the emergency room yesterday after a fall was evaluated for back pain that note was reviewed. He is altered when he arrives here. He was combative and disoriented when they arrived on the scene and while in route. Once arriving here he will alter between saying he does not want to be here and he wants to leave and asking us to help him. He then requests his to help him his is not at the bedside when I first came to see him. He has no obvious trauma to the head he is complaining of back pain on arrival to get him to give us a specific issue. He appears to be under the influence. When he was stated that his back hurt light palpation he cried out in pain tested several other spots on his body including his outer helix of his right ear with light palpation he screams in pain with that as well. MD complaint: Low back pain Onset (ago): unknown Review of Systems General: Reports: ROS unobtainable due to mental status PFSH ED PFSH: Medical History Carpal tunnel syndrome of right wrist Dyslipidemia Surgical History History of hip replacement Left History of shoulder replacement Right Family History Mother Cancer Father Diabetes Dementia Stroke Brother Diabetes Social History Smoking and tobacco status: never smoked Second hand smoke exposure: No Alcohol intake: current Alcohol intake frequency: holidays/special occasions only Desire information about alcohol rehabilitation?: No Substance/Drug Use: never Desire information about substance/drug rehabilitation?: No Physical Exam HENMT: COMMON NORMALS: normocephalic, atraumatic and hearing grossly normal bilaterally HEAD & SCALP: normocephalic and atraumatic Resp: COMMON NORMALS: normal respiratory effort, No retractions, No use of accessory muscles and clear to auscultation bilaterally AUSCULTATION: clear to auscultation bilaterally Cardio: COMMON NORMALS: regular rate, regular rhythm and No murmurs present (Cardio) RATE: regular rate RHYTHM: regular rhythm GI: COMMON NORMALS: Soft to palpation and No hepatosplenomegaly present AUSCULTATION: Yes normoactive bowel sounds PALPATION: Yes Soft to palpation, No Tenderness to palpation present (GI), No Guarding due to palpation present (GI) and Yes No hepatosplenomegaly present Extremity: COMMON NORMALS: normal to inspection, capillary refill normal, no clubbing, cyanosis or edema, no calf tenderness and no pedal edema Skin: COMMON NORMALS: no rashes or lesions noted GENERAL SKIN EXAM: no ra shes or lesions noted Course Vital Signs: Vital signs: Vital Signs Pulse Rate 74 10/28/22 14:00 Respiratory Rate 15 10/28/22 14:00 Blood Pressure 133/73 10/28/22 14:00 Pulse Oximetry 94 10/28/22 14:00 MDM - General Adult Medical Decision Making EKG does not show any acute changes second troponin negative. Patient's back pain is improved he wishes to go home his is present at the bedside now. Discussed his alcohol level with him. Based on her response she is not aware that he has been drinking quite as much as he has. He has had problems with chronic low back pain. They wish to continue to follow-up as an outpatient return if has further problems. Medical Records I reviewed the patient's medical records. Lab Data I reviewed the patient's lab results. 10/28/22 12:54 10/28/22 12:54 Laboratory Results WBC 8.84 10^3/uL (3.29-11.43) 10/28/22 12:54 RBC 5.89 10^6/uL (3.85-5.65) H 10/28/22 12:54 Hgb 17.80 g/dL (11.27-16.99) H 10/28/22 12:54 Hct 52.9 % (37-53) 10/28/22 12:54 MCV 89.8 fl (82-101) 10/28/22 12:54 MCH 30.2 pg (27-33) 10/28/22 12:54 MCHC 33.6 g/dL (30-55) 10/28/22 12:54 RDW 14.6 % (12.1-15.1) 10/28/22 12:54 Plt Count 201 10^3/cmm (157-399) 10/28/22 12:54 MPV 9.7 fL (7.4-10.4) 10/28/22 12:54 Neut % (Auto) 54.0 % 10/28/22 12:54 Lymph % (Auto) 31.9 % 10/28/22 12:54 [place] % (Auto) 10.6 % 10/28/22 12:54 Eos % (Auto) 2.4 % 10/28/22 12:54 Baso % (Auto) 0.8 % 10/28/22 12:54 Neut # (Auto) 4.77 10^3/uL (1.8-7.7) 10/28/22 12:54 Lymph # (Auto) 2.8 10^3/uL (0.8-4.8) 10/28/22 12:54 [place] # (Auto) 0.9 10^3/uL (0.2-0.9) 10/28/22 12:54 Eos # (Auto) 0.2 10^3/uL (0.0-0.8) 10/28/22 12:54 Baso # (Auto) 0.1 10^3/uL (0.0-0.1) 10/28/22 12:54 Nucleated RBC % (auto) 0 % 10/28/22 12:54 Nucleated RBCs # 0.0 /100WBC 10/28/22 12:54 Sodium 147 mmol/L (136-145) H 10/28/22 12:54 Potassium 4.7 mmol/L (3.5-5.1) 10/28/22 12:54 Chloride 107 mmol/L (98-107) 10/28/22 12:54 Carbon Dioxide 28 mmol/L (22-29) 10/28/22 12:54 Anion Gap 16.7 (5-19) 10/28/22 12:54 BUN 22 mg/dL (8-23) 10/28/22 12:54 Creatinine 1.1 mg/dL (0.7-1.2) 10/28/22 12:54 GFR Calculation Not Reportable 10/28/22 12:54 Glucose 83 mg/dL (65-115) 10/28/22 12:54 Calculated Osmolality 306 mOsm/kg (285-295) H 10/28/22 12:54 Calcium 9.5 mg/dL (8.5-10.5) 10/28/22 12:54 Total Bilirubin 0.7 mg/dL (0.15-1.2) 10/28/22 12:54 AST 28 U/L (0-40) 10/28/22 12:54 ALT 27 U/L (0-41) 10/28/22 12:54 Alkaline Phosphatase 89 U/L (40-130) 10/28/22 12:54 Troponin T Baseline 18 ng/L (0-15) H 10/28/22 12:54 Troponin T 120 Minute 15.67 ng/L (0-15) H 10/28/22 14:50 Delta Troponin T -2.33 ABS# (0-10) L 10/28/22 14:50 Total Protein 6.5 g/dL (6.6-8.7) L 10/28/22 12:54 Albumin 4.7 g/dL (3.5-5.2) 10/28/22 12:54 Globulin 1.8 g/dL (1.3-4.6) 10/28/22 12:54 Urine Opiates Screen Positive ng/mL (Negative) H 10/28/22 13:10 Ur Barbiturates Screen Negative ng/mL (Negative) 10/28/22 13:10 Ur Phencyclidine Scrn Negative ng/mL (Negative) 10/28/22 13:10 Ur Amphetamines Screen Negative ng/mL (Negative) 10/28/22 13:10 U Benzodiazepines Scrn Negative ng/mL (Negative) 10/28/22 13:10 Urine Cocaine Screen Negative ng/mL (Negative) 10/28/22 13:10 U Marijuana (THC) Screen Negative ng/mL (Negative) 10/28/22 13:10 Ethyl Alcohol 298 mg/dL (0-10) H 10/28/22 12:54 Discharge Plan Discharge Patient Disposition: Home Clinical Impression: Alcohol intoxication Condition: Stable Prescriptions: No Action sildenafil (pulm.hypertension) 20 mg tablet See Rx Instructions .ROUTE .COMPLEX Qty: 90 0RF Dose Instruction: TAKE ONE TO FIVE TABLETS BY MOUTH ON AN EMPTY STOAMCH ONE HOUR BEFORE SEXUAL ACTIVITY Rx Instructions: TAKE ONE TO FIVE TABLETS BY MOUTH ON AN EMPTY STOAMCH ONE HOUR BEFORE SEXUAL ACTIVITY (DME) crutches See Rx Instructions .Route .MEDSUPPLY Qty: 1 0RF Rx Instructions: As directed testosterone cypionate 200 mg/mL oil 150 mg SUBCUT .every 14 days Qty: 4.5 0RF Rx Instructions: Please dispense syringes as well. atorvastatin 40 mg tablet 40 mg PO DAILY 90 Days Qty: 90 1RF meloxicam 15 mg tablet 15 mg PO DAILY amlodipine 2.5 mg tablet 2.5 mg PO DAILY omeprazole 20 mg capsule,delayed release(DR/EC) 20 mg PO DAILY Discharge Orders: Discharge ED (Routine); Ordered 10/28/22 Ordered By: Adan Boone Referrals: Karen Simmons DO [Primary Care Provider] - Patient Instructions: Alcohol Intoxication (ED), Altered Mental Status (ED), Opioid Safety, Pain Management Activity Restrictions/Additional Instructions: Recommend abstaining from alcohol. If you continue to have back pain follow-up with primary care doctor Coding Level of Care Code ED College Sports Assistant for Eduardo Heath
[2022-10-28 12:59] LABS: Basophils # 0.1 10^3/uL (0.0-0.1); Basophils % 0.8 %; Eosinophils # 0.2 10^3/uL (0.0-0.8); Eosinophils % 2.4 %; Hematocrit 52.9 % (37-53); Lymphocytes # 2.8 10^3/uL (0.8-4.8); Lymphocytes % 31.9 %; Mean Corpuscular HGB Conc 33.6 g/dL (30-55); Mean Corpuscular Hemoglobin 30.2 pg (27-33); Mean Corpuscular Volume 89.8 fl (82-101); Mean Platelet Volume 9.7 fL (7.4-10.4); Monocytes # 0.9 10^3/uL (0.2-0.9); Monocytes % 10.6 %; Neutrophils # 4.77 10^3/uL (1.8-7.7); Nucleated Red Blood Cells % 0 %; Platelet Count 201 10^3/cmm (157-399); Red Blood Count 5.89 10^6/uL (3.85-5.65); Red Cell Distribution Width 14.6 % (12.1-15.1); White Blood Count 8.84 10^3/uL (3.29-11.43)
--- NOTE | 2022-10-28 13:16 | ECG_ITS ---
[facility] Test Date: 2022-10-28 Pat Name: Jaycob Orozco Department: Room: Gender: Male Producer: : [id number] Requested By: Adan Mullins Order Number: [id number] Minesh MD: Terry Duran M.D. Measurements Intervals [place] Rate: 71 P: 64 [place]: 224 QRS: -39 QRSD: 126 T: 16 QT: 399 QTc: 435 Interpretive Statements SINUS RHYTHM WITH FIRST DEGREE AV BLOCK LEFT AXIS DEVIATION [QRS AXIS < -30] MODERATE INTRAVENTRICULAR CONDUCTION DELAY [110+ ms QRS DURATION] MODERATE VOLTAGE CRITERIA FOR LVH, CONSIDER NORMAL VARIANT [MEETS CRITERIA IN ONE OF: R(aVL), S(V1), R(V5), R(V5/V6)+S(V1)] No previous ECG available for comparison Electronically Signed On 10-28-2022 15:46:52 CDT by Terry Duran M.D. [id number]
[2022-10-28 13:19] VITALS: BP 135/83; PULSE 72; RESP 20; O2SAT 97
[2022-10-28 13:22] LABS: Alanine Aminotransferase 27 U/L (0-41); Albumin Level 4.7 g/dL (3.5-5.2); Alcohol Level 298 mg/dL (0-10); Alkaline Phosphatase 89 U/L (40-130); Anion Gap 16.7 (5-19); Aspartate Amino Transferase 28 U/L (0-40); Blood Urea Nitrogen 22 mg/dL (8-23); Calcium 9.5 mg/dL (8.5-10.5); Carbon Dioxide 28 mmol/L (22-29); Chloride 107 mmol/L (98-107); Globulin 1.8 g/dL (1.3-4.6); Glucose 83 mg/dL (65-115); Osmolality Calculated 306 mOsm/kg (285-295); Potassium 4.7 mmol/L (3.5-5.1); Sodium 147 mmol/L (136-145); Total Bilirubin 0.7 mg/dL (0.15-1.2); Total Protein 6.5 g/dL (6.6-8.7)
[2022-10-28 13:30] LABS: Amphetamines Screen Urine Negative (Negative); Barbiturates Screen Urine Negative (Negative); Benzodiazepines Screen Urine Negative (Negative); Cocaine Screen Urine Negative (Negative); Opiate Screen Urine Positive (Negative); PCP Screen Urine Negative (Negative); THC Screen Urine Negative (Negative)
[2022-10-28 13:33] LABS: Troponin(5th) Baseline 18 ng/L (0-15)
[2022-10-28 14:00] VITALS: BP 133/73; PULSE 74; RESP 15; O2SAT 94
--- NOTE | 2022-10-28 14:59 | PC.NURSE ---
PT requested to go home. PT declined waiting for labs. PT declined DC vitals.
[2022-10-28 15:28] LABS: Troponin 5 2HR 15.67 ng/L (0-15)
[2022-10-28 15:29] LABS: Troponin 5 2HR Delta -2.33 ABS# (0-10)
== END 2022-10-28 15:01 | disposition home or self-care (01) ==
PROVIDERS: Emergency Provider Family Medicine; PCP Family Medicine
DX: F10.129 Alcohol abuse with intoxication, unspecified (principal); Y90.8 Blood alcohol level of 240 mg/100 ml or more; E78.5 Hyperlipidemia, unspecified
CPT/HCPCS: 72131; 80053; 80306; 80307; 84484; 85025; 93005; 99285

== ENCOUNTER 2022-11-22 14:09 | Emergency (ER) | payer OTHER, SELFPAY ==
--- NOTE | 2022-11-22 14:11 | ECG_ITS ---
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 Measurements Intervals [place] Rate: 100 P: 8 NE: 188 QRS: -57 QRSD: 114 T: 29 QT: 366 QTc: 474 Interpretive Statements SINUS TACHYCARDIA POSSIBLE LEFT ATRIAL ENLARGEMENT [-0.1mV P-WAVE IN V1/V2] S1-S2-S3 PATTERN, CONSISTENT WITH PULMONARY DISEASE, RVH, OR NORMAL VARIANT LEFT ANTERIOR FASCICULAR BLOCK [QRS AXIS <= -45, QR IN I, RS IN II] INFERIOR MYOCARDIAL INFARCTION , PROBABLY OLD [40+ ms Q WAVE AND/OR ST/T ABNORMALITY IN II/aVF] Compared to ECG 10/28/2022 13:16:40 Right ventricular hypertrophy now present Left anterior fascicular block now present Myocardial infarct finding now present Sinus rhythm no longer present Intraventricular conduction delay no longer present Electronically Signed On 11-22-2022 20:33:59 CDT by Jozef Gee M.D. [id number]
[2022-11-22 14:12] VITALS: BP 157/96; PULSE 104; O2SAT 90
--- NOTE | 2022-11-22 14:14 | XRR_ITS ---
PROCEDURE INFORMATION: Exam: XR Chest Exam date and time: 11/22/2022 2:48 PM Age: 72 years old Clinical indication: Shortness of breath; Additional info: SOB TECHNIQUE: Imaging protocol: Radiologic exam of the chest. Views: 1 view. COMPARISON: MR thoracic spin wo con* [id number] 05/13/2022 2:33 PM FINDINGS: Lungs: Scarring noted at the left lung base. No consolidation. Pleural spaces: Unremarkable. No pleural effusion. No pneumothorax. Heart/Mediastinum: Unremarkable. No cardiomegaly. Bones/joints: Unremarkable. XR/XR chest 1V portable [id number] IMPRESSION: No acute findings.
--- NOTE | 2022-11-22 14:23 | W.ED.PSYCHS ---
HPI - Psych General: Chief Complaint: Psychiatric Symptoms Stated Complaint: SI; ETOH Time Seen by Provider: 11/22/22 14:11 Source: patient and EMS Mode of arrival: EMS Limitations: altered mental status History of Present Illness: 72-year-old male with a history of alcoholism police and EMS were called today for suicidal ideations patient told his he wanted to kill himself he told police he went to kill himself to get a loaded 38 pistol in the bed with him. Per EMS patient was combative in route they did give him Haldol he has been drinking as well. History difficult currently due to him being altered from the Haldol Associated symptoms: Reports depression and suicidal ideation Review of Systems Const: Denies: fever(s) or chills ENMT: Denies: throat pain or dental pain Card: Denies: chest pain Resp: Denies: dyspnea GI: Denies: abdominal pain, nausea, vomiting or diarrhea Musc: Denies: neck pain or back pain Skin/Breast: Denies: rash Neuro: Denies: headache(s) Psych: Reports: depression and suicidal ideation PFS ED PFSH: Medical History Carpal tunnel syndrome of right wrist Dyslipidemia Surgical History History of hip replacement Left History of shoulder replacement Right Family History Mother Cancer Father Diabetes Dementia Stroke Brother Diabetes Social History Smoking and tobacco status: never smoked Second hand smoke exposure: No Alcohol intake: current Alcohol intake frequency: holidays/special occasions only Desire information about alcohol rehabilitation?: No Substance/Drug Use: never Desire information about substance/drug rehabilitation?: No Physical Exam Const: COMMON NORMALS: patient oriented x3 GENERAL APPEARANCE: odor of alcohol detected HENMT: COMMON NORMALS: normocephalic and atraumatic HEAD & SCALP: normocephalic and atraumatic Eye: COMMON NORMALS: Equal, round and reactive pupils present and EOMs intact bilaterally PUPIL: Yes Equal, round and reactive pupils present Neck/C-Spine: COMMON NORMALS: full ROM Chest: COMMONS NORMALS: normal inspection of the chest and normal palpation of entire chest wall Resp: COMMON NORMALS: normal respiratory effort and clear to auscultation bilaterally AUSCULTATION: clear to auscultation bilaterally Cardio: COMMON NORMALS: regular rate and regular rhythm RATE: regular rate RHYTHM: regular rhythm GI: COMMON NORMALS: Normal to inspection, nondistended, normoactive bowel sounds present, Soft to palpation and non-tender PALPATION: Yes Soft to palpation Extremity: COMMON NORMALS: normal to inspection Neuro: COMMON NORMALS: patient oriented x3 Psych: THOUGHT CONTENT: Yes Suicidality present Course Vital Signs: Vital signs: Vital Signs Pulse Rate 93 11/23/22 06:23 Respiratory Rate 16 11/23/22 06:23 Blood Pressure 188/104 11/23/22 06:23 Pulse Oximetry 94 11/23/22 06:23 Oxygen Delivery Me thod Room Air 11/22/22 16:05 Oxygen Flow Rate 6 11/22/22 14:12 MDM - Psych Medical Decision Making Patient presents here with suicidal ideations along with alcohol intoxication patient was given Haldol he required at oxygen due to being sedated he is now awake and alert and at his baseline oxygen was turned off he is medically cleared his x-ray is normal patient excepted at [facility]. Medical Records I reviewed the patient's medical records. Lab Data I reviewed the patient's lab results. 11/22/22 14:17 11/22/22 14:17 Radiology Impressions Chest X-Ray 11/22/22 14:14 IMPRESSION: No acute findings. Laboratory Results WBC 9.80 10^3/uL (3.29-11.43) 11/22/22 14:17 RBC 6.24 10^6/uL (3.85-5.65) H 11/22/22 14:17 Hgb 19.00 g/dL (11.27-16.99) H 11/22/22 14:17 Hct 54.9 % (37-53) H 11/22/22 14:17 MCV 88.0 fl (82-101) 11/22/22 14:17 MCH 30.4 pg (27-33) 11/22/22 14:17 MCHC 34.6 g/dL (30-55) 11/22/22 14:17 RDW 14.8 % (12.1-15.1) 11/22/22 14:17 Plt Count 210 10^3/cmm (157-399) 11/22/22 14:17 MPV 10.3 fL (7.4-10.4) 11/22/22 14:17 Neut % (Auto) 63.6 % 11/22/22 14:17 Lymph % (Auto) 25.2 % 11/22/22 14:17 [place] % (Auto) 9.8 % 11/22/22 14:17 Eos % (Auto) 0.6 % 11/22/22 14:17 Baso % (Auto) 0.4 % 11/22/22 14:17 Neut # (Auto) 6.23 10^3/uL (1.8-7.7) 11/22/22 14:17 Lymph # (Auto) 2.5 10^3/uL (0.8-4.8) 11/22/22 14:17 [place] # (Auto) 1.0 10^3/uL (0.2-0.9) H 11/22/22 14:17 Eos # (Auto) 0.1 10^3/uL (0.0-0.8) 11/22/22 14:17 Baso # (Auto) 0.0 10^3/uL (0.0-0.1) 11/22/22 14:17 Nucleated RBC % (auto) 0 % 11/22/22 14:17 Nucleated RBCs # 0.0 /100WBC 11/22/22 14:17 Sodium 142 mmol/L (136-145) 11/22/22 14:17 Potassium 3.9 mmol/L (3.5-5.1) 11/22/22 14:17 Chloride 101 mmol/L (98-107) 11/22/22 14:17 Carbon Dioxide 24 mmol/L (22-29) 11/22/22 14:17 Anion Gap 20.9 (5-19) H 11/22/22 14:17 BUN 24 mg/dL (8-23) H 11/22/22 14:17 Creatinine 1.0 mg/dL (0.7-1.2) 11/22/22 14:17 GFR Calculation Not Reportable 11/22/22 14:17 Glucose 167 mg/dL (65-115) H 11/22/22 14:17 Calculated Osmolality 302 mOsm/kg (285-295) H 11/22/22 14:17 Calcium 9.5 mg/dL (8.5-10.5) 11/22/22 14:17 Total Bilirubin 0.8 mg/dL (0.15-1.2) 11/22/22 14:17 AST 25 U/L (0-40) 11/22/22 14:17 ALT 23 U/L (0-41) 11/22/22 14:17 Alkaline Phosphatase 103 U/L (40-130) 11/22/22 14:17 Total Protein 7.0 g/dL (6.6-8.7) 11/22/22 14:17 Albumin 4.5 g/dL (3.5-5.2) 11/22/22 14:17 Globulin 2.5 g/dL (1.3-4.6) 11/22/22 14:17 TSH 2.55 uIU/mL (0.27-4.20) 11/22/22 14:17 Urine Color Yellow (Yellow) 11/22/22 16:46 Urine Appearance Clear (CLEAR) 11/22/22 16:46 Urine pH 5 (5-7) 11/22/22 16:46 Ur Specific [place] 1.025 (1.005-1.030) 11/22/22 16:46 Urine Protein Neg (Negative) 11/22/22 16:46 Urine Glucose (UA) Norm (Normal) 11/22/22 16:46 Urine Ketones 1+ (Negative) H 11/22/22 16:46 Urine Blood Neg (Negative) 11/22/22 16:46 Urine Nitrate Negative (Negative) 11/22/22 16:46 Urine Bilirubin Neg (Negative) 11/22/22 16:46 Urine Urobilinogen Norm mg/dL (Negative) 11/22/22 16:46 Ur Leukocyte Esterase Negative (Negative) 11/22/22 16:46 Salicylates < 0.3 mg/dL (3-10) L 11/22/22 14:17 Urine Opiates Screen Negative ng/mL (Negative) 11/22/22 16:46 Acetaminophen < 5.0 ug/mL (10-30) L 11/22/22 14:17 Ur Barbiturates Screen Negative ng/mL (Negative) 11/22/22 16:46 Ur Phencyclidine Scrn Negative ng/mL (Negative) 11/22/22 16:46 Ur Amphetamines Screen Negative ng/mL (Negative) 11/22/22 16:46 U Benzodiazepines Scrn Negative ng/mL (Negative) 11/22/22 16:46 Urine Cocaine Screen Negative ng/mL (Negative) 11/22/22 16:46 U Marijuana (THC) Screen Negative ng/mL (Negative) 11/22/22 16:46 Ethyl Alcohol 185 mg/dL (0-10) H 11/22/22 17:40 SARS-CoV-2 Ag (Rapid) negative (Negative) 11/22/22 14:42 All radiology interpretation(s) finalized by discharge Discharge Plan Discharge Patient Disposition: Xfer Short-Term Hosp Clinical Impression: Suicidal ideation, Alcohol intoxication Condition: Stable Referrals: Karen Simmons DO [Primary Care Provider] - Coding Level of Care Code ED Multicultural Internship for [facility]
[2022-11-22 14:24] LABS: Basophils % 0.4 %; Eosinophils # 0.1 10^3/uL (0.0-0.8); Eosinophils % 0.6 %; Hematocrit 54.9 % (37-53); Lymphocytes # 2.5 10^3/uL (0.8-4.8); Lymphocytes % 25.2 %; Mean Corpuscular HGB Conc 34.6 g/dL (30-55); Mean Corpuscular Hemoglobin 30.4 pg (27-33); Mean Platelet Volume 10.3 fL (7.4-10.4); Monocytes % 9.8 %; Neutrophils # 6.23 10^3/uL (1.8-7.7); Neutrophils % 63.6 %; Nucleated Red Blood Cells % 0 %; Platelet Count 210 10^3/cmm (157-399); Red Blood Count 6.24 10^6/uL (3.85-5.65); Red Cell Distribution Width 14.8 % (12.1-15.1)
[2022-11-22 14:58] LABS: Alanine Aminotransferase 23 U/L (0-41); Albumin Level 4.5 g/dL (3.5-5.2); Alcohol Level 260 mg/dL (0-10); Alkaline Phosphatase 103 U/L (40-130); Anion Gap 20.9 (5-19); Aspartate Amino Transferase 25 U/L (0-40); Blood Urea Nitrogen 24 mg/dL (8-23); Calcium 9.5 mg/dL (8.5-10.5); Carbon Dioxide 24 mmol/L (22-29); Chloride 101 mmol/L (98-107); Globulin 2.5 g/dL (1.3-4.6); Glucose 167 mg/dL (65-115); Osmolality Calculated 302 mOsm/kg (285-295); Potassium 3.9 mmol/L (3.5-5.1); Sodium 142 mmol/L (136-145); Thyroid Stimulating Hormone 2.55 uIU/mL (0.27-4.20); Total Bilirubin 0.8 mg/dL (0.15-1.2)
[2022-11-22 15:02] LABS: SARS Covid-2 Antigen negative (Negative)
[2022-11-22 15:04] LABS: Acetaminophen < 5.0 ug/mL (10-30); Salicylate < 0.3 mg/dL (3-10)
[2022-11-22 16:05] VITALS: BP 157/96; PULSE 93; RESP 18; O2SAT 93
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
[2022-11-22 16:51] LABS: Add Urine Microscopic? NO; Charge for UA Resulting for Rev
[2022-11-22 16:57] LABS: Bilirubin Urine Neg (Negative); Blood Urine Neg (Negative); Glucose Urine UA Norm (Normal); Ketones Urine 1+ (Negative); Nitrate Urine Negative (Negative); Protein Urine Neg (Negative); Specific Gravity, Urine 1.025 (1.005-1.030); Urine Appearance Clear (CLEAR); Urine Color Yellow (Yellow); pH Urine 5 (5-7)
[2022-11-22 16:58] LABS: Leukocyte Esterase Urine Negative (Negative); Urobilinogen Urine Norm (Negative)
[2022-11-22 17:09] LABS: Amphetamines Screen Urine Negative (Negative); Barbiturates Screen Urine Negative (Negative); Benzodiazepines Screen Urine Negative (Negative); Cocaine Screen Urine Negative (Negative); Opiate Screen Urine Negative (Negative); PCP Screen Urine Negative (Negative); THC Screen Urine Negative (Negative)
[2022-11-22 18:05] LABS: Alcohol Level 185 mg/dL (0-10)
[2022-11-22] MEDS: amlodipine 5 mg Tablet 2.5 MG PO (18:59)
[2022-11-23] MEDS: oxyCODONE-APAP 5-325 mg Tablet 1 TAB PO (01:29)
[2022-11-23] MEDS: ibuprofen 200 mg Tablet 400 MG PO (01:29)
[2022-11-23 06:23] VITALS: BP 188/104; PULSE 93; RESP 16; O2SAT 94
--- NOTE | 2022-11-23 06:27 | PC.NURSE ---
RN into room to assess vital signs. Pt is calm and cooperative at this point. RN informed pt that breakfast would be brought this morning to him. Pt updated on transfer situation. RN informed pt that his would be bringing clothes for him to take to the transfer facility once allowed there. Pt verbalized understanding of these. Pt denies any requests at this time and is quietly laying in bed trying to sleep. PSA present.
== END 2022-11-23 11:10 | disposition short-term general hospital (02) ==
PROVIDERS: Emergency Provider Emergency Medicine; PCP Family Medicine
DX: R45.851 Suicidal ideations (principal); F10.129 Alcohol abuse with intoxication, unspecified; Y90.6 Blood alcohol level of 120-199 mg/100 ml; Z11.52 Encounter for screening for COVID-19; E78.5 Hyperlipidemia, unspecified
CPT/HCPCS: 36415; 71045; 80053; 80306; 80307; 81003; 84443; 85025; 87426; 93005; 96374; 99285; J3411

== ENCOUNTER → 2023-02-09 09:32 | Outpatient (BNVA) | payer MEDICARE, BC, SELFPAY | PROVIDERS: PCP Family Medicine; Visit Provider Family Medicine | DX: I10 Essential (primary) hypertension (principal); Z13.6 Encounter for screening for cardiovascular disorders; R79.89 Other specified abnormal findings of blood chemistry; M54.2 Cervicalgia; G89.29 Other chronic pain; E78.5 Hyperlipidemia, unspecified; M25.59 Pain in other specified joint | CPT/HCPCS: 80053; 80061; 84403; 85025 ==

== ENCOUNTER → 2023-06-17 09:14 | Outpatient (BNVA) | payer MEDICARE, BC, SELFPAY | PROVIDERS: PCP Family Medicine; Visit Provider Family Medicine | DX: R79.89 Other specified abnormal findings of blood chemistry (principal) | CPT/HCPCS: 84403; 85025 ==

== ENCOUNTER 2023-08-09 09:07 | Emergency (ER) | payer OTHER, MEDICARE, BC, SELFPAY ==
[2023-08-09 09:35] VITALS: BP 125/92; PULSE 95; RESP 16; TEMP 36.8; O2SAT 99; BMI 25.9
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
[2023-08-09 11:32] VITALS: BP 113/82; PULSE 96; RESP 16; TEMP 36.8; O2SAT 100
== END 2023-08-09 11:33 | disposition home or self-care (01) ==
PROVIDERS: Emergency Provider Physician Assistant; PCP Family Medicine
DX: Z04.1 Encounter for examination and observation following transport accident (principal); S05.12XA Contusion of eyeball and orbital tissues, left eye, initial encounter; W22.11XA Striking against or struck by driver side automobile airbag, initial encounter; E78.5 Hyperlipidemia, unspecified; S50.812A Abrasion of left forearm, initial encounter; V89.2XXA Person injured in unspecified motor-vehicle accident, traffic, initial encounter
CPT/HCPCS: 71045; 73090; 73502; 99284

== ENCOUNTER → 2023-08-17 12:03 | Outpatient (BNVA) | payer OTHER, MEDICARE, BC, SELFPAY | PROVIDERS: PCP Family Medicine; Visit Provider Family Medicine | DX: I10 Essential (primary) hypertension (principal); R35.1 Nocturia | CPT/HCPCS: 80053; 84153 ==

== ENCOUNTER → 2023-08-30 11:24 | Outpatient (BNVA) | payer OTHER, MEDICARE, BC, SELFPAY | PROVIDERS: PCP Family Medicine; Visit Provider Nurse Practitioner Family | DX: M79.642 Pain in left hand (principal) | CPT/HCPCS: 73130 ==

== ENCOUNTER → 2024-03-02 09:21 | Outpatient (BNVA) | payer MEDICARE, BC, SELFPAY | PROVIDERS: PCP Family Medicine; Visit Provider Family Medicine | DX: R79.89 Other specified abnormal findings of blood chemistry (principal); N52.1 Erectile dysfunction due to diseases classified elsewhere; E78.5 Hyperlipidemia, unspecified | CPT/HCPCS: 80061; 84403 ==

== ENCOUNTER → 2024-06-14 18:20 | Outpatient (BNVA) | payer MEDICARE, BC, SELFPAY | PROVIDERS: PCP Family Medicine; Visit Provider Emergency Medicine | DX: I51.7 Cardiomegaly (principal) | CPT/HCPCS: 71046 ==

== ENCOUNTER → 2024-07-26 07:40 | Outpatient (BNVA) | payer MEDICARE, BC, SELFPAY | PROVIDERS: PCP Family Medicine; Visit Provider Podiatrist Foot & Ankle Surgery | DX: M25.572 Pain in left ankle and joints of left foot (principal); S82.402A Unspecified fracture of shaft of left fibula, initial encounter for closed fracture; X58.XXXA Exposure to other specified factors, initial encounter | CPT/HCPCS: 73610; 99204 ==

== ENCOUNTER → 2024-08-03 11:30 | Outpatient (BNVA) | payer MEDICARE, OTHER, SELFPAY | PROVIDERS: PCP Family Medicine; Visit Provider Family Medicine | DX: I10 Essential (primary) hypertension (principal); I44.0 Atrioventricular block, first degree; R79.89 Other specified abnormal findings of blood chemistry; E29.1 Testicular hypofunction; K21.9 Gastro-esophageal reflux disease without esophagitis; Z90.81 Acquired absence of spleen; N52.1 Erectile dysfunction due to diseases classified elsewhere | CPT/HCPCS: 80053; 82607; 84403; 84443; 85025 ==

== ENCOUNTER → 2024-08-23 10:11 | Outpatient (BNVA) | payer OTHER, SELFPAY | PROVIDERS: PCP Family Medicine; Visit Provider Podiatrist Foot & Ankle Surgery | DX: S82.852D Displaced trimalleolar fracture of left lower leg, subsequent encounter for closed fracture with routine healing (principal); X58.XXXD Exposure to other specified factors, subsequent encounter | CPT/HCPCS: 73610 ==

== ENCOUNTER 2024-08-23 11:01 | Outpatient (CLI) | payer OTHER, SELFPAY | END 2024-08-23 11:02 | disposition home or self-care (01) | LOC: SPT 11:02 | PROVIDERS: PCP Family Medicine; Visit Provider Podiatrist Foot & Ankle Surgery | DX: Z46.89 Encounter for fitting and adjustment of other specified devices (principal); S82.402D Unspecified fracture of shaft of left fibula, subsequent encounter for closed fracture with routine healing; X58.XXXD Exposure to other specified factors, subsequent encounter | CPT/HCPCS: L1902 ==

== ENCOUNTER → 2024-09-13 10:56 | Outpatient (BNVA) | payer OTHER, SELFPAY | PROVIDERS: PCP Family Medicine; Visit Provider Podiatrist Foot & Ankle Surgery | DX: S82.402A Unspecified fracture of shaft of left fibula, initial encounter for closed fracture (principal); S99.922A Unspecified injury of left foot, initial encounter; X58.XXXA Exposure to other specified factors, initial encounter | CPT/HCPCS: 73630; 99213 ==

== ENCOUNTER 2025-02-02 16:03 | Outpatient (CLI) | payer BC, MEDICARE, SELFPAY ==
--- NOTE | 2025-02-02 16:15 | USCV_ITS ---
Jaycob Orozco Age: 74 Gender: M : 1950 Exam Date: 02/02/2025 16:25 Ordering Phys: Karine Coe MD Technologist: Exam Location: [facility] [place] Indication: dizziness Risk Factors: Previous Vascular Surgery: Right Brachial BP: / Left Brachial BP: / Right Left Velocity (cm/s) Spectral Plaque Velocity (cm/s) Spectral Plaque Syst/Diast Broadening Syst/Diast Broadening 65.20/ 11.80 Prox CCA 71.80 / 10.90 70.90/ 12.80 Mid CCA 62.50 / 11.10 60.60/ 13.40 Distal CCA 62.50 / 10.10 40.30/ 7.60 Prox ICA 37.50 / 10.80 25.80/ 9.10 Mid ICA 42.60 / 14.50 30.30/ 9.10 Distal ICA 36.50 / 11.10 59.70 ECA 55.60 0.70 ICA/CCA 0.60 Antegrade Vertebral Antegrade 38.00/ 11.20 cm/s 33.90/ 8.40 cm/s Tri Subclavian Tri 123.6 76.10 0 FINDINGS Comparison: none available. No significant elevation of systolic or diastolic velocities. Waveforms are normal. No significant amount of calcified plaque or intimal thickening identified. CONCLUSIONS Normal carotid doppler ultrasound. Dr. Hemalatha Calvert DO (Electronically Signed) Final Date: 05 February 2025 08:06 S
== END 2025-02-02 16:04 | disposition home or self-care (01) ==
LOC: RAD 16:05
PROVIDERS: PCP Family Medicine; Visit Provider Family Medicine
DX: R09.89 Other specified symptoms and signs involving the circulatory and respiratory systems (principal)
CPT/HCPCS: 93880

== ENCOUNTER 2025-02-07 07:20 | Outpatient (CLI) | payer BC, MEDICARE, SELFPAY ==
--- NOTE | 2025-02-07 07:30 | CT_ITS ---
WS: [id number] CT HEAD NONCONTRAST HISTORY: headaches TECHNIQUE: Contiguous axial imaging performed through the brain. Bone and soft tissue windows. Sagittal and coronal reformats reviewed. All CT scans at [facility] use at least one of these dose optimization techniques: automated exposure control; mA and/or kV adjustment per patient size (includes targeted exams where dose is matched to clinical indication); or iterative reconstruction. DLP: 1172.08 mGy.cm COMPARISON: None available. No acute intracranial hemorrhage, midline shift or mass effect. Mild symmetric atrophy. More advanced changes of small vessel disease bilaterally. Confluent white matter changes surrounding the ventricles. No prior infarcts. CSF fluid density in the posterior fossa is most consistent with an arachnoid cyst. Ventricles: Normal size with no hydrocephalus. Dense calcification in the distal LEFT vertebral artery. Dense calcified plaque through the intracranial carotid arteries and the cavernous sinuses. Paranasal sinuses: As visualized are clear. Mastoid air cells: Well pneumatized. Calvarium and scalp: Skull is intact with no soft tissue edema or swelling. CT/CT head wo con* [id number] IMPRESSION: 1. No acute intracranial hemorrhage or edema. 2. Mild cerebral atrophy. 3. Advanced small vessel changes throughout the white matter. No prior large t erritory infarct. 4. Dense calcification in the distal LEFT vertebral artery and bilaterally in the intracranial carotid arteries.
== END 2025-02-07 07:21 | disposition home or self-care (01) ==
LOC: RAD 07:22
PROVIDERS: PCP Family Medicine; Visit Provider Family Medicine
DX: I67.89 Other cerebrovascular disease (principal); G93.89 Other specified disorders of brain; I65.29 Occlusion and stenosis of unspecified carotid artery
CPT/HCPCS: 70450

== ENCOUNTER 2025-02-21 15:39 | Outpatient (CLI) | payer BC, MEDICARE, SELFPAY ==
--- NOTE | 2025-02-21 16:00 | CTR_ITS ---
PROCEDURE INFORMATION: Exam: CTA Head With Contrast, Arteriography Exam date and time: 02/21/2025 4:12 PM Age: 74 years old Clinical indication: Abnormal findings; Abnormal CT of the head; Follow up to US and CT head, dizziness and falling a lot; Additional info: Abnormal CT; Evaluate for vertebral artery stenosis TECHNIQUE: Imaging protocol: Computed tomographic angiography of the head with contrast. Exam focused on the arteries. 3D rendering (Not supervised by radiologist): MIP and/or 3D reconstructed images were created by the technologist. Radiation optimization: All CT scans at this facility use at least one of these dose optimization techniques: automated exposure control; mA and/or kV adjustment per patient size (includes targeted exams where dose is matched to clinical indication); or iterative reconstruction. Contrast material: OMNI 350; Contrast volume: 100 ml; Contrast route: INTRAVENOUS (IV); COMPARISON: CT head wo con* [id number] 02/07/2025 7:32 AM RADIATION DOSE METRICS: Total DLP (mGy-cm): 1332.55 FINDINGS: ANTERIOR CIRCULATION: Right internal carotid artery: Mild calcification of the carotid siphon without significant stenosis or occlusion. No aneurysm. Right middle cerebral artery: No occlusion or significant stenosis. No aneurysm. Right anterior cerebral artery: No occlusion or significant stenosis. No aneurysm. Left internal carotid artery: Mild calcification of the carotid siphon without significant stenosis or occlusion. No aneurysm. Left middle cerebral artery: No occlusion or significant stenosis. No aneurysm. Left anterior cerebral artery: No occlusion or significant stenosis. No aneurysm. POSTERIOR CIRCULATION: Right vertebral artery: Hypoplastic. No occlusion or significant stenosis. No aneurysm. Left vertebral artery: Intimal calcifications. No occlusion or significant stenosis. No aneurysm. Basilar artery: No occlusion or significant stenosis. No aneurysm. Right posterior cerebral artery: Persistent origin with hypoplastic P1 segment. No occlusion or significant stenosis. No aneurysm. Left posterior cerebral artery: No occlusion or significant stenosis. No aneurysm. Brain: No acute hemorrhage, edema, or mass effect. Extensive areas of periventricular and subcortical hypoattenuation likely reflecting severe chronic microvascular ischemic changes given the patient's age. 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 Cerebral ventricles: Central predominant cerebral volume loss. No hydrocephalus. Mastoid air cells: The tympanomastoid cavities are clear. Paranasal sinuses: Minimal scattered paranasal sinus mucosal thickening. No fluid levels. Bones/joints: Unremarkable. No acute fracture. Soft tissues: Unremarkable. PROCEDURE INFORMATION: Exam: CTA Neck With Contrast Exam date and time: 02/21/2025 4:12 PM Age: 74 years old Clinical indication: Abnormal findings; Abnormal CT of the head; Follow up to US and CT head, dizziness and falling a lot; Additional info: Abnormal CT; Evaluate for vertebral artery stenosis TECHNIQUE: Imaging protocol: Computed tomographic angiography of the neck with contrast. Exam focused on the cervical segments of the vasculature. 3D rendering (Not supervised by radiologist): MIP and/or 3D reconstructed images were created by the technologist. Radiation optimization: All CT scans at this facility use at least one of these dose optimization techniques: automated exposure control; mA and/or kV adjustment per patient size (includes targeted exams where dose is matched to clinical indication); or iterative reconstruction. Contrast material: OMNI 350; Contrast volume: 100 ml; Contrast route: INTRAVENOUS (IV); COMPARISON: CT head wo con* [id number] 02/07/2025 7:32 AM RADIATION DOSE METRICS: Total DLP (mGy-cm): 1332.55 FINDINGS: Right common carotid artery: No stenosis. No dissection or occlusion. Right internal carotid artery: No stenosis of the extracranial segment. No dissection or occlusion. Right external carotid artery: No occlusion or stenosis of the origin. Left common carotid artery: No stenosis. No dissection or occlusion. Left internal carotid artery: No stenosis of the extracranial segment. No dissection or occlusion. Left external carotid artery: No occlusion or stenosis of the origin. Right vertebral artery: No stenosis. No dissection or occlusion. Left vertebral artery: No stenosis. No dissection or occlusion. Thyroid: Left thyroid nodules measuring up to 1.0 cm. Soft tissues: Normal. No significant soft tissue swelling. Bones/joints: No acute fracture. CT/CT angio headneck* [id number] IMPRESSION: 1. No acute hemorrhage, edema, or mass effect. 2. Extensive chronic microvascular ischemic changes, similar to prior CT on 02/07/2025. 3. Central predominant cerebral volume loss. 4. No major vascular occlusion or high-grade stenosis. IMPRESSION: No ICA stenosis by NASCET criteria. COMMENTS: Consistent with the [employer]'s Incidental Findings Committee white paper (J Am Beto Radiol 2015): In patients aged 35 years and older with an incidental thyroid nodule equal to or greater than 1.[address], MRI or extrathyroidal US, further evaluation with dedicated thyroid US is recommended for patients with normal life expectancy and without comorbidities. For smaller nodules without suspicious features, no further evaluation or follow up is recommended. REFERENCES: NASCET CRITERIA. The degree of stenosis in the cervical segment of the internal carotid artery is based on NASCET criteria. Normal is no stenosis. Mild is less than 50% stenosis. Moderate is 50-69% stenosis. Severe is 70% to 99% stenosis. Total occlusion is no detectable patent lumen.
[2025-02-21 16:09] LABS: Blood Urea Nitrogen 22 mg/dL (8-23)
[2025-02-21] MEDS: iohexol 350 mg/mL 500 mL Btl (per mL) IV (16:25)
== END 2025-02-21 15:40 | disposition home or self-care (01) ==
LOC: RAD 15:39
PROVIDERS: PCP Family Medicine; Visit Provider Family Medicine
DX: R93.0 Abnormal findings on diagnostic imaging of skull and head, not elsewhere classified (principal); I65.09 Occlusion and stenosis of unspecified vertebral artery; G93.89 Other specified disorders of brain; J34.89 Other specified disorders of nose and nasal sinuses
CPT/HCPCS: 70496; 70498; 82565; 84520